=== PATIENT | female | born 1990 | race Two or more races ===

== ENCOUNTER 2021-09-02 04:03 | Inpatient (IN) | payer OTHER ==
[~2021-09-02] VITALS: Ht 167.6 cm; Wt 101.2 kg
[2021-09-02] MEDS ORDERED: PRENATAL TABLE1 EAC1 PO (04:14)
== END 2021-09-04 14:50 | disposition home or self-care (01) | DRG 807 ==
LOC: LDR 04:03 → OB/GYN 04:03
PROVIDERS: ADMIT Obstetrics & Gynecology; ATTEND Obstetrics & Gynecology
PROC: 10E0XZZ Delivery of Products of Conception, External Approach (ICD-10-PCS; principal; 2021-09-02)
PROC: 4A1HXCZ Monitoring of Products of Conception, Cardiac Rate, External Approach (ICD-10-PCS; 2021-09-02)
DX: O80 Encounter for full-term uncomplicated delivery (principal); Z37.0 Single live birth; Z3A.37 37 weeks gestation of pregnancy; Z20.822 Contact with and (suspected) exposure to COVID-19

== ENCOUNTER 2021-09-10 00:22 | Emergency (ER) | payer OTHER ==
[~2021-09-10] VITALS: Ht 167.6 cm; Wt 95.7 kg
[~2021-09-10 00:22] MED LIST: PRENATAL TABLE1 EAC1 PO
== END 2021-09-10 09:40 | disposition home or self-care (01) ==
LOC: ER 00:22 → EMR PED 00:22 → ER 09:02
DX: O16.5 Unspecified maternal hypertension, complicating the puerperium (principal); R07.89 Other chest pain